=== PATIENT | female | born 1985 | race African-American/Black ===

== ENCOUNTER 2017-06-19 17:31 | Emergency (ER) | payer BC ==
[~2017-06-19] VITALS: Ht 175.3 cm; Wt 112.0 kg
[~2017-06-19 17:31] MED LIST: ADVIL,NUPRIN,M200 MG PO; BENADRYL25 MG PO; CLARITIN,ALAVAR10 MG PO; METROGEL-VAGINA70 GM VG; PRILOSEC OTC20 MG PO; TUMS500 MG PO; VALIUM5 MG PO; XANAX0.5 MG PO
[2017-06-19 18:41] LABS: HEMATOCRIT 40.1 % (36.0-46.0); MCH 27.8 PG (29.0-34.0); MCHC 32.2 G/DL (30.0-36.0); MCV 86.4 FL (83-99); MEAN PLAT.VOLUME 11.6 uM^3 (9.5-12.4); PLATELET COUNT 228 K/uL (156-360); RBC DIS.WIDTH-CV 13.1 % (11.8-14.6); RBC DIS.WIDTH-SD 40.9 % (39-53); RED BLOOD COUNT 4.64 M/uL (3.80-5.20); WHITE BLOOD COUNT 5.5 K/uL (4.1-10.2)
[2017-06-19 18:50] LABS: CHLORIDE 107 mEq/L (99-109); SODIUM 140 mEq/L (136-147)
[2017-06-19 18:52] LABS: GLUCOSE 91 mg/dL (70-99)
[2017-06-19 18:53] LABS: ANION GAP 9 MEQ/L (2-14)
[2017-06-19 18:56] LABS: GFR ESTIMATE (CALCULATED) > 59 mL/min/
[2017-06-19 18:57] LABS: UREA NITROGEN (BUN) 14 mg/dL (9-23)
[2017-06-19 19:03] LABS: TROP-I INTERPRETATION NEGATIVE; TROPONIN-I < 0.01 ng/mL (0.0-0.30)
[2017-06-19] MEDS ORDERED: PREDNISONE50 MG PO (20:40)
[2017-06-19 20:52] VITALS: BP 135/92
== END 2017-06-19 20:54 | disposition home or self-care (01) ==
LOC: EME 17:31
DX: R20.0 Anesthesia of skin (principal); R07.89 Other chest pain; K21.9 Gastro-esophageal reflux disease without esophagitis; J45.909 Unspecified asthma, uncomplicated
CPT/HCPCS: 71020; 72040; 80048; 84484; 85027; 93005; 99281; 99284; J7512